=== PATIENT | male | born 1970 | race African-American/Black ===

== ENCOUNTER 2016-11-13 12:54 | Emergency (ER) | payer OTHER ==
[~2016-11-13] VITALS: Ht 190.5 cm; Wt 86.2 kg
[2016-11-13 12:55] VITALS: BP 131/101
[2016-11-13] MEDS ORDERED: NEURONTIN 300300 M1 PO (13:00)
[2016-11-13] MEDS ORDERED: KOMBIGLYZE XR1 EAC1 PO ×2 (13:00→14:06)
[2016-11-13] MEDS ORDERED: ACETAMINOPHEN-1 EAC1 PO ×2 (13:01→14:06)
[2016-11-13] MEDS ORDERED: XANAX1 MG PO (13:01)
[2016-11-13] MEDS ORDERED: PAXIL20 MG PO ×2 (13:01→14:06)
[2016-11-13] MEDS ORDERED: PRED-G 1% EYE DR5 ML OTIC (13:02)
[2016-11-13] MEDS ORDERED: PRED-G 1% EYE DR5 ML OPHTHALMIC (14:06)
[2016-11-13] MEDS ORDERED: NEURONTIN 400400 M1 PO (14:06)
== END 2016-11-13 14:32 | disposition home or self-care (01) ==
LOC: ER 12:54
DX: Z76.0 Encounter for issue of repeat prescription (principal); E11.9 Type 2 diabetes mellitus without complications; F41.9 Anxiety disorder, unspecified; Z98.890 Other specified postprocedural states